=== PATIENT | male | born 1980 | race Caucasian/White ===

== ENCOUNTER 2018-02-15 18:50 | Emergency (ER) | payer MEDICAID ==
[~2018-02-15] VITALS: Ht 175.3 cm; Wt 66.0 kg
[2018-02-15 19:03] VITALS: BP 131/86
[2018-02-15] MEDS ORDERED: LIDOcaine 1% 30ml preserv. free vial IJ STA (20:23)
[2018-02-15] MEDS ORDERED: AMOX500C2 PO (20:28)
[2018-02-15] MEDS ORDERED: IBUP-1985 PO (20:41)
== END 2018-02-15 20:48 | disposition home or self-care (01) ==
LOC: ER 18:51
DX: K04.7 Periapical abscess without sinus (principal); G89.29 Other chronic pain; F17.200 Nicotine dependence, unspecified, uncomplicated; Z79.2 Long term (current) use of antibiotics; Z79.899 Other long term (current) drug therapy
CPT/HCPCS: 64400; 99284; J3490